=== PATIENT | female | born 1955 | race Caucasian/White ===

== ENCOUNTER 2022-02-10 13:00 | Emergency (ER) | payer OTHER ==
[~2022-02-10] VITALS: Ht 160 cm; Wt 63.5 kg
[2022-02-10] MEDS ORDERED: PEPCID40 MG (13:16)
[2022-02-10] MEDS ORDERED: LIPITOR40 M1 (13:16)
== END 2022-02-10 16:40 | disposition home or self-care (01) ==
LOC: ER 13:00
DX: R10.2 Pelvic and perineal pain (principal)